=== PATIENT | male | born 1935 | race Caucasian/White ===

== ENCOUNTER 2018-02-03 13:11 | Inpatient (IN) | payer MEDICARE, OTHER ==
[2018-02-03] MEDS: ACETAMINOPHEN 500 MG TAB PO (15:35)
[2018-02-03 15:54] LABS: ADD UMIC YES; UR ASCORBIC ACID NEGATIVE (NEGATIVE); UR BILIRUBIN (Dip) NEGATIVE (NEGATIVE); UR BLOOD (Dip) 2+ mg/dL (NEGATIVE); UR CLARITY SLIGHTLY CLOUDY (CLEAR); UR COLOR YELLOW (YELLOW); UR GLUCOSE (Dip) NEGATIVE (NEGATIVE); UR KETONES (Dip) NEGATIVE (NEGATIVE); UR LEUKOCYTE ESTERASE (Dip) NEGATIVE Leu/ul (NEGATIVE); UR MUCUS MODERATE /HPF (NONE SEEN); UR NITRITE (Dip) NEGATIVE (NEGATIVE); UR RBC 10 /HPF (0-5); UR SPECIFIC GRAVITY (Dip) 1.026 (1.003-1.030); UR TOTAL PROTEIN (Dip) 1+ mg/dl (NEGATIVE); UR UROBILINOGEN (Dip) NEGATIVE (NEGATIVE); UR WBC 2 /HPF (0-5)
[2018-02-03 16:29] LABS: ADD MAN DIFF? NO
[2018-02-03 16:31] LABS: BASOPHIL # 0.2 10^3/ul (0.0-0.1); BASOPHILS % 1.2 % (0.0-2.0); EOSINOPHILS # 0.6 10^3/ul (0.0-0.5); EOSINOPHILS % 4.8 % (0.0-7.0); HEMATOCRIT 41.2 % (42.0-52.0); HEMOGLOBIN 13.6 g/dl (14.0-18.0); LYMPHOCYTES # 1.8 10^3/ul (0.8-2.9); LYMPHOCYTES % 14.3 % (15.0-51.0); MEAN CORPUSCULAR HEMOGLOBIN 31.3 pg (29.0-33.0); MEAN CORPUSCULAR VOLUME 94.7 fl (82.0-101.0); MEAN PLATELET VOLUME 10.2 fl (7.4-10.4); MONOCYTE # 0.9 10^3/ul (0.3-0.9); MONOCYTES % 7.3 % (0.0-11.0); NEUTROPHIL # 9.1 10^3/ul (1.6-7.5); NEUTROPHILS % 71.3 % (39.0-77.0); PLATELET COUNT 345 10^3/UL (140-415); RED BLOOD COUNT 4.35 10^6/ul (4.70-6.10); RED CELL DISTRIBUTION WIDTH 13.4 % (11.5-14.5)
[2018-02-03 16:31] LABS: WHITE BLOOD COUNT 12.7 10^3/ul (4.8-10.8)
[2018-02-03 16:56] LABS: ALANINE AMINOTRANSFERASE 26 IU/L (13-69); ALBUMIN 3.9 g/dl (3.3-4.9); ALBUMIN/GLOBULIN RATIO 1.08; ALKALINE PHOSPHATASE 83 IU/L (42-121); ANION GAP 18 (8-16); ASPARTATE AMINO TRANSFERASE 22 IU/L (15-46); BILIRUBIN,INDIRECT 0.1 mg/dl (0-1.1); BILIRUBIN,TOTAL 0.1 mg/dl (0.2-1.3); BLOOD UREA NITROGEN 27 mg/dl (7-20); CALCIUM 8.9 mg/dl (8.4-10.2); CARBON DIOXIDE 26 mmol/L (21-31); CHLORIDE 102 mmol/L (97-110); CREATININE 1.28 mg/dl (0.61-1.24); GLUCOSE 113 mg/dl (70-220); LIPASE 81 U/L (23-300); SODIUM 142 mmol/L (135-144); TOTAL PROTEIN 7.5 g/dl (6.1-8.1)
[2018-02-03] MEDS: SOD CHLORIDE 0.9% 1,000 ML IV ×2 (17:11→19:25)
[2018-02-03 17:31] LABS: TROPONIN-I < 0.012 ng/ml (0.00-0.12)
[2018-02-03] MEDS: CEFEPIME 1GM/50 ML (PMX) 50 ML IVPB (18:38)
[2018-02-03] MEDS: VANCOMYCIN 1 GM (PMX) 250 ML IVPB (19:22)
[2018-02-03] MEDS ORDERED: ACETAMINOPHEN 325 MG TAB PO (19:30)
[2018-02-03] MEDS ORDERED: ONDANSETRON 4 MG INJ IV ×2 (19:30→21:30)
[2018-02-03] MEDS ORDERED: ALBUTEROL/IPRATROPIUM (NEB) 3 ML AMP HHN (21:30)
[2018-02-04 06:17] LABS: ADD MAN DIFF? NO
[2018-02-04 06:20] LABS: WHITE BLOOD COUNT 11.5 10^3/ul (4.8-10.8)
[2018-02-04 06:20] LABS: BASOPHIL # 0.1 10^3/ul (0.0-0.1); BASOPHILS % 1.1 % (0.0-2.0); EOSINOPHILS # 0.7 10^3/ul (0.0-0.5); EOSINOPHILS % 6.2 % (0.0-7.0); HEMATOCRIT 38.4 % (42.0-52.0); HEMOGLOBIN 12.7 g/dl (14.0-18.0); LYMPHOCYTES # 1.5 10^3/ul (0.8-2.9); LYMPHOCYTES % 13.1 % (15.0-51.0); MEAN CORPUSCULAR HEMOGLOBIN 30.8 pg (29.0-33.0); MEAN CORPUSCULAR HGB CONC 33.1 g/dl (32.0-37.0); MEAN CORPUSCULAR VOLUME 93.2 fl (82.0-101.0); MEAN PLATELET VOLUME 9.7 fl (7.4-10.4); MONOCYTE # 0.9 10^3/ul (0.3-0.9); MONOCYTES % 7.7 % (0.0-11.0); NEUTROPHIL # 8.2 10^3/ul (1.6-7.5); NEUTROPHILS % 71.2 % (39.0-77.0); PLATELET COUNT 335 10^3/UL (140-415); RED BLOOD COUNT 4.12 10^6/ul (4.70-6.10); RED CELL DISTRIBUTION WIDTH 13.1 % (11.5-14.5)
[2018-02-04] MEDS: LEVOTHYROXINE 75 MCG TAB PO (06:22)
[2018-02-04 06:56] LABS: ALANINE AMINOTRANSFERASE 24 IU/L (13-69); ALBUMIN 3.2 g/dl (3.3-4.9); ALBUMIN/GLOBULIN RATIO 0.96; ALKALINE PHOSPHATASE 70 IU/L (42-121); ANION GAP 13 (8-16); ASPARTATE AMINO TRANSFERASE 17 IU/L (15-46); BILIRUBIN,INDIRECT 0.2 mg/dl (0-1.1); BILIRUBIN,TOTAL 0.2 mg/dl (0.2-1.3); BLOOD UREA NITROGEN 18 mg/dl (7-20); CALCIUM 8.6 mg/dl (8.4-10.2); CARBON DIOXIDE 25 mmol/L (21-31); CHLORIDE 108 mmol/L (97-110); CREATININE 1.02 mg/dl (0.61-1.24); GLUCOSE 101 mg/dl (70-220); MAGNESIUM 2.1 mg/dl (1.7-2.5); PHOSPHORUS 3.4 mg/dl (2.5-4.9); SODIUM 142 mmol/L (135-144); TOTAL PROTEIN 6.5 g/dl (6.1-8.1)
[2018-02-04] MEDS ORDERED: GUAIFENESIN/DM 5ML CUP PO (08:30)
[2018-02-04] MEDS: DONEPEZIL 10 MG TAB PO (09:06)
[2018-02-04] MEDS: ASPIRIN (EC) 81 MG TAB PO (09:06)
[2018-02-04] MEDS: MEMANTINE 10 MG TAB PO ×2 (09:06→20:36)
[2018-02-04] MEDS: FAMOTIDINE 20 MG INJ IV (09:07)
[2018-02-04] MEDS: SOD CHLORIDE 0.9% 1,000 ML IV ×2 (09:07→23:38)
[2018-02-04] MEDS: ENOXAPARIN 40 MG/0.4 ML SYG SC (09:15)
[2018-02-04] MEDS: CEFTRIAXONE 2 GM/50 ML (PMX) 50 ML IVPB (11:46)
[2018-02-04] MEDS: HALOPERIDOL 5 MG INJ IM (23:15)
[2018-02-04] MEDS: LORAZEPAM 2 MG INJ IV (23:35)
[2018-02-05] MEDS ORDERED: HALOPERIDOL 5 MG INJ IM (03:00)
[2018-02-05] MEDS ORDERED: LORAZEPAM 2 MG INJ IV (03:00)
[2018-02-05] MEDS: LEVOTHYROXINE 75 MCG TAB PO (05:40)
[2018-02-05 06:14] LABS: ADD MAN DIFF? NO
[2018-02-05 06:24] LABS: WHITE BLOOD COUNT 9.3 10^3/ul (4.8-10.8)
[2018-02-05 06:24] LABS: BASOPHIL # 0.1 10^3/ul (0.0-0.1); BASOPHILS % 0.9 % (0.0-2.0); EOSINOPHILS # 0.9 10^3/ul (0.0-0.5); HEMATOCRIT 39.5 % (42.0-52.0); LYMPHOCYTES # 1.3 10^3/ul (0.8-2.9); LYMPHOCYTES % 14.5 % (15.0-51.0); MEAN CORPUSCULAR HEMOGLOBIN 30.9 pg (29.0-33.0); MEAN CORPUSCULAR HGB CONC 32.9 g/dl (32.0-37.0); MEAN CORPUSCULAR VOLUME 93.8 fl (82.0-101.0); MEAN PLATELET VOLUME 9.6 fl (7.4-10.4); MONOCYTE # 0.8 10^3/ul (0.3-0.9); MONOCYTES % 8.5 % (0.0-11.0); NEUTROPHIL # 6.1 10^3/ul (1.6-7.5); NEUTROPHILS % 65.2 % (39.0-77.0); PLATELET COUNT 353 10^3/UL (140-415); RED BLOOD COUNT 4.21 10^6/ul (4.70-6.10); RED CELL DISTRIBUTION WIDTH 13.1 % (11.5-14.5)
[2018-02-05 06:44] LABS: INR 1.01; PROTIME 13.4 Sec (11.9-14.9)
[2018-02-05 06:54] LABS: ALANINE AMINOTRANSFERASE 25 IU/L (13-69); ALBUMIN 3.4 g/dl (3.3-4.9); ALBUMIN/GLOBULIN RATIO 0.97; ALKALINE PHOSPHATASE 71 IU/L (42-121); ANION GAP 15 (8-16); ASPARTATE AMINO TRANSFERASE 16 IU/L (15-46); BILIRUBIN,INDIRECT 0.2 mg/dl (0-1.1); BILIRUBIN,TOTAL 0.2 mg/dl (0.2-1.3); BLOOD UREA NITROGEN 16 mg/dl (7-20); CALCIUM 8.9 mg/dl (8.4-10.2); CARBON DIOXIDE 27 mmol/L (21-31); CHLORIDE 106 mmol/L (97-110); CREATININE 1.11 mg/dl (0.61-1.24); GLUCOSE 103 mg/dl (70-220); MAGNESIUM 2.2 mg/dl (1.7-2.5); PHOSPHORUS 3.8 mg/dl (2.5-4.9); POTASSIUM 4.3 mmol/L (3.5-5.1); SODIUM 144 mmol/L (135-144); TOTAL PROTEIN 6.9 g/dl (6.1-8.1)
[2018-02-05] MEDS: FAMOTIDINE 20 MG INJ IV (09:27)
[2018-02-05] MEDS: CEFTRIAXONE 2 GM/50 ML (PMX) 50 ML IVPB (09:28)
[2018-02-05] MEDS: ENOXAPARIN 40 MG/0.4 ML SYG SC (09:35)
[2018-02-05] MEDS: DONEPEZIL 10 MG TAB PO (10:01)
[2018-02-05] MEDS: ASPIRIN (EC) 81 MG TAB PO (10:02)
[2018-02-05] MEDS: MEMANTINE 10 MG TAB PO ×2 (10:02→20:49)
[2018-02-05] MEDS: SOD CHLORIDE 0.9% 1,000 ML IV ×2 (11:10→18:08)
[2018-02-05] MEDS ORDERED: BISACODYL (EC) 5 MG TAB PO (14:00)
[2018-02-05] MEDS ORDERED: DOCUSATE SODIUM 100 MG CAP PO (14:00)
[2018-02-05] MEDS: LEVOFLOXACIN 750 MG TABLET PO (15:30)
[2018-02-05] MEDS: SOD CHLORIDE 0.9% 500 ML IV (15:31)
[2018-02-05] MEDS: HALOPERIDOL 5 MG INJ IM (16:24)
[2018-02-05] MEDS: LORAZEPAM 2 MG INJ IV (22:24)
[2018-02-06] MEDS: LEVOTHYROXINE 75 MCG TAB PO (05:37)
[2018-02-06 06:01] LABS: ADD MAN DIFF? NO
[2018-02-06 06:11] LABS: BASOPHIL # 0.1 10^3/ul (0.0-0.1); BASOPHILS % 1.1 % (0.0-2.0); EOSINOPHILS # 0.6 10^3/ul (0.0-0.5); EOSINOPHILS % 6.9 % (0.0-7.0); HEMATOCRIT 39.5 % (42.0-52.0); LYMPHOCYTES # 1.5 10^3/ul (0.8-2.9); LYMPHOCYTES % 16.7 % (15.0-51.0); MEAN CORPUSCULAR HEMOGLOBIN 31.2 pg (29.0-33.0); MEAN CORPUSCULAR HGB CONC 32.9 g/dl (32.0-37.0); MEAN CORPUSCULAR VOLUME 94.7 fl (82.0-101.0); MEAN PLATELET VOLUME 9.4 fl (7.4-10.4); MONOCYTE # 0.7 10^3/ul (0.3-0.9); NEUTROPHIL # 6.1 10^3/ul (1.6-7.5); NEUTROPHILS % 66.6 % (39.0-77.0); PLATELET COUNT 352 10^3/UL (140-415); RED BLOOD COUNT 4.17 10^6/ul (4.70-6.10); RED CELL DISTRIBUTION WIDTH 13.1 % (11.5-14.5)
[2018-02-06 06:11] LABS: WHITE BLOOD COUNT 9.2 10^3/ul (4.8-10.8)
[2018-02-06 06:55] LABS: ALANINE AMINOTRANSFERASE 19 IU/L (13-69); ALBUMIN 3.3 g/dl (3.3-4.9); ALKALINE PHOSPHATASE 68 IU/L (42-121); ANION GAP 16 (8-16); ASPARTATE AMINO TRANSFERASE 20 IU/L (15-46); BILIRUBIN,INDIRECT 0.2 mg/dl (0-1.1); BILIRUBIN,TOTAL 0.2 mg/dl (0.2-1.3); BLOOD UREA NITROGEN 15 mg/dl (7-20); CARBON DIOXIDE 24 mmol/L (21-31); CHLORIDE 108 mmol/L (97-110); CREATININE 0.96 mg/dl (0.61-1.24); GLUCOSE 103 mg/dl (70-220); SODIUM 144 mmol/L (135-144); TOTAL PROTEIN 6.6 g/dl (6.1-8.1)
[2018-02-06] MEDS: CEFTRIAXONE 2 GM/50 ML (PMX) 50 ML IVPB (09:27)
[2018-02-06] MEDS: FAMOTIDINE 20 MG INJ IV (09:27)
[2018-02-06] MEDS: MEMANTINE 10 MG TAB PO (09:28)
[2018-02-06] MEDS: DONEPEZIL 10 MG TAB PO (09:28)
[2018-02-06] MEDS: ASPIRIN (EC) 81 MG TAB PO (09:28)
[2018-02-06] MEDS: ENOXAPARIN 40 MG/0.4 ML SYG SC (09:39)
== END 2018-02-06 14:00 | disposition home or self-care (01) | DRG 194 ==
LOC: FTE 13:11 → MS2 19:19
DX: J18.9 Pneumonia, unspecified organism (principal); N17.9 Acute kidney failure, unspecified; I47.1 Supraventricular tachycardia; I10 Essential (primary) hypertension; E03.9 Hypothyroidism, unspecified; K80.20 Calculus of gallbladder without cholecystitis without obstruction; N40.0 Benign prostatic hyperplasia without lower urinary tract symptoms; N20.0 Calculus of kidney; F03.90 Unspecified dementia, unspecified severity, without behavioral disturbance, psychotic disturbance, mood disturbance, and anxiety
CPT/HCPCS: 36415; 71045; 71100; 72100; 74176; 80053; 81001; 83690; 83735; 84100; 84443; 84484; 85025; 85610; 87040; 87086; 92610; 93005; 96365; 96372; 96375; 99285-25